=== PATIENT | male | born 1975 | race Caucasian/White ===

== ENCOUNTER 2020-09-04 14:46 | Emergency (ER) | payer BC ==
[2020-09-04 15:24] LABS: #Eosinphils 0.1 10x3/uL (0.0-0.5); #Monocytes 0.4 10x3/uL (0.0-1.1); %Basophils 1.1 % (0.0-2.0); %Eosinophils 1.7 % (0.0-6.0); %Monocytes 12.4 % (0.0-10.0); Hemoglobin 14.5 g/dL (13.5-17.5); Mean Corpuscular HGB CONC 34.3 g/dL (32.0-36.0); Mean Corpuscular Hemoglobin 32.7 pg (27.0-33.0); Mean Corpuscular Volume 95.3 fl (81.2-95.1); Mean Platelet Volume 8.8 fl (7.4-10.4); Platelet Count 221 10x3/uL (150-450); RBC Distribution Width 11.8 % (11.5-14.5); Red Blood Cell (RBC) Count 4.44 10x6/uL (4.32-5.72); White Blood Cell (WBC) Count 3.6 10x3/uL (3.5-10.5)
[2020-09-04 15:30] LABS: Bilirubin Neg (Negative); Blood, Urine Negative (Negative); Clarity Clear (Clear); Glucose, Urine (Dipstick) Normal (Negative); Ketone, Urine Negative (Negative); Leukocyte Negative (Negative); Nitrite Negative (Negative); Protein, Urine (Dipstick) Negative (Neg-Trace); Urobilinogen Normal mg/dL (Less than 2); pH, Urine 6.5 (5.0-9.0)
[2020-09-04] MEDS ORDERED: Lorazepam 2 MG/ML VIAL ONE (15:34)
[2020-09-04 15:37] LABS: Amphetamine Not Detected (NotDetected); Barbiturates Screen Not Detected (NotDetected); Benzodiazepine Screen Not Detected (NotDetected); Cocaine Metabolite Screen Not Detected (NotDetected); Methadone Not Detected (NotDetected); Methamphetamine Not Detected (NotDetected); Opiate Screen Not Detected (NotDetected); Oxycodone Screen Not Detected (NotDetected); Phencyclidine (PCP) Not Detected (NotDetected); THC/Cannabinoid Screen Not Detected (NotDetected); Tricyclic Screen Not Detected (NotDetected)
[2020-09-04 15:38] LABS: ALT (SGPT) 115 U/L (8-55); AST (SGOT) 98 U/L (5-34); Albumin 3.9 g/dL (3.5-5.0); Alcohol 115 mg/dL (Less than 10); Alkaline Phosphatase 51 U/L (40-110); Anion Gap 15 mmol/L (10-20); BUN (Urea Nitrogen) 6 mg/dL (8.9-20.6); Bilirubin, Total 0.5 mg/dL (0.2-1.2); Calc. Creatinine Clearance 0 mL/min (70-130); Calcium 8.1 mg/dL (7.8-10.44); Carbon Dioxide 25 mmol/L (22-29); Chloride 100 mmol/L (98-107); Globulin 2.8 g/dL (2.4-3.5); Glucose 102 mg/dL (70-105); Potassium 3.6 mmol/L (3.5-5.1); Protein, Total 6.7 g/dL (6.0-8.3); Sodium 136 mmol/L (136-145)
== END 2020-09-05 01:41 ==
LOC: CSHERS 14:46
DX: R45.851 Suicidal ideations (principal); I10 Essential (primary) hypertension
CPT/HCPCS: 36415; 80053; 80306; 80307; 81003; 82550; 84443; 84484; 85025; 93005; 96374; J2060

== ENCOUNTER 2020-10-28 23:13 | Emergency (ER) | payer BC | END 2020-10-28 23:39 | disposition home or self-care (01) | LOC: CSHERS 23:13 | DX: R00.0 Tachycardia, unspecified (principal); I10 Essential (primary) hypertension; Z79.899 Other long term (current) drug therapy | CPT/HCPCS: 99284 ==